=== PATIENT | male | born 2000 | race Caucasian/White ===

== ENCOUNTER → 2022-02-18 | Outpatient (CLI) | payer OTHER ==
--- NOTE | 2022-02-18 17:01 | XR ---
Right hand HISTORY: Trauma 4 days prior, pain 4 views of the right hand Soft tissue swelling is noted. 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 IMPRESSION: Findings of the scaphoid as described. No evident fracture at the distal aspect of the se cond 2000 metacarpals
== END | disposition home or self-care (01) ==
LOC: RADXRYALE 16:26
PROVIDERS: ATTEND Physician Assistant
DX: M25.541 Pain in joints of right hand (principal)